=== PATIENT | male | born 1975 | race Caucasian/White ===

== ENCOUNTER 2021-04-29 09:54 | Emergency (ER) | payer BC ==
--- NOTE | 2021-04-29 10:27 | EDM.PDOC ---
ED HPI GENERAL MEDICAL PROBLEM - General Chief Complaint: Abdominal Pain Stated Complaint: ABD PAIN Time Seen by Provider: 04/29/21 10:23 Source of Information: Reports: Patient History Limitations: Reports: No Limitations - History of Present Illness INITIAL COMMENTS - FREE TEXT/NARRATIVE: on fri the patient developed pain in his rectum extending into the left abdoman. he has a past history of diverticulitis. He has not vomited. He feels like he has had some difference in his bms. He has not noted blood in the stool. Onset: Gradual, Other ( started fri. ) Duration: Hour(s): Location: Reports: Abdomen, Other (left side of the abdoman. ) Associated Symptoms: Denies: Other (pain on and off. ) Abdominal Pain Score (Numeric/FACES): 8 - Related Data Allergies Allergy/AdvReac Type Severity Reaction Status Date / Time Penicillins Allergy Hives Verified 04/29/21 10:08 Home Meds: Home Meds NK [No Known Home Meds] 04/29/21 [History] Past Medical History HEENT History: Reports: None Cardiovascular History: Reports: None Respiratory History: Reports: None Gastrointestinal History: Reports: Diverticulosis, Hemorrhoids Genitourinary History: Reports: None Musculoskeletal History: Reports: Fracture Neurological History: Reports: None Psychiatric History: Reports: None Endocrine/Metabolic History: Reports: None Hematologic History: Reports: None Immunologic History: Reports: None Oncologic (Cancer) History: Reports: None Dermatologic History: Reports: None - Infectious Disease History Infectious Disease History: Reports: Chicken Pox, Novel Coronavirus - Past Surgical History HEENT Surgical History: Reports: Tonsillectomy Musculoskeletal Surgical History: Reports: Shoulder Surgery Social & Family History - Recreational Drug Use Recreational Drug Use: No ED ROS GENERAL - Review of Systems Review Of Systems: See Below Constitutional: Reports: Decreased Appetite HEENT: Reports: No Symptoms Respiratory: Reports: No Symptoms Cardiovascular: Reports: No Symptoms Endocrine: Reports: No Symptoms GI/Abdominal: Reports: Abdominal Pain, Other ( change in bowel habits. pain in left abdoman. ) : Reports: No Symptoms Musculoskeletal: Reports: No Symptoms Skin: Reports: No Symptoms ED EXAM, GI/ABD - Physical Exam Exam: See Below Text/Narrative:: pt arrived with left sided abdomanal pain. He has noted a change in his bowel habits. He has sharp shooting pain at times. Exam Limited By: No Limitations General Appearance: Alert, Anxious, Moderate Distress Ears: Normal TMs Nose: Normal Inspection Throat/Mouth: Normal Inspection Head: Atraumatic Neck: Normal Inspection Respiratory/Chest: No Respiratory Distress Cardiovascular: Regular Rate, Rhythm GI/Abdominal Exam: Tender, Other (pt is tender in the left lower abdoman. He has slight guarding. ) (Male) Exam: Deferred Rectal (Males) Exam: Deferred Back Exam: Normal Inspection Extremities: Normal Inspection Neurological: Alert, Oriented, Normal Cognition Psychiatric: Anxious Course - Vital Signs Last Recorded V/S: Last Vital Signs Temp 36.4 C 04/29/21 10:03 Pulse 86 04/29/21 10:03 Resp 20 04/29/21 10:03 BP 131/90 04/29/21 10:03 Pulse Ox 99 04/29/21 10:03 - Orders/Labs/Meds Labs: Laboratory Tests 04/29/21 04/29/21 04/29/21 Range/Units 10:30 10:30 10:30 WBC 11.0 (4.5-11.0) K/uL RBC 4.59 (4.30-5.90) M/uL Hgb 14.3 (12.0-15.0) g/dL Hct 41.9 (40.0-54.0) % MCV 91 (80-98) fL MCH 31 (27-31) pg MCHC 34 (32-36) % Plt Count 190 (150-400) K/uL Neut % (Auto) 71.9 H (36-66) % Lymph % (Auto) 16.1 L (24-44) % Dougherty % (Auto) 8.7 H (2-6) % Eos % (Auto) 3.0 (2-4) % Baso % (Auto) 0.3 (0-1) % Sodium 139 L (140-148) mmol/L Potassium 4.4 (3.6-5.2) mmol/L Chloride 104 (100-108) mmol/L Carbon Dioxide 24 (21-32) mmol/L Anion Gap 15.4 H (5.0-14.0) mmol/L BUN 11 (7-18) mg/dL Creatinine 0.9 (0.8-1.3) mg/dL Est Cr Clr Drug Dosing 101.47 mL/min Estimated GFR (MDRD) > 60 (>60) Glucose 109 H (74-106) mg/dL Calcium 8.7 (8.5-10.1) mg/dL Total Bilirubin 0.5 (0.2-1.0) mg/dL AST 10 L (15-37) U/L ALT 18 (12-78) U/L Alkaline Phosphatase 74 (46-116) U/L C-Reactive Protein 1.36 H (0.0-0.3) mg/dL Total Protein 6.5 (6.4-8.2) g/dL Albumin 3.5 (3.4-5.0) g/dL Globulin 3.0 (2.3-3.5) g/dL Albumin/Globulin Ratio 1.2 (1.2-2.2) Urine Color (YELLOW) Urine Appearance (CLEAR) Urine pH (5.0-8.0) Ur Specific [place] (1.008-1.030) Urine Protein (NEGATIVE) mg/dL Urine Glucose (UA) (NEGATIVE) mg/dL Urine Ketones (NEGATIVE) mg/dL Urine Occult Blood (NEGATIVE) Urine Nitrite (NEGATIVE) Urine Bilirubin (NEGATIVE) Urine Urobilinogen (0.2-1.0) EU/dL Ur Leukocyte Esterase (NEGATIVE) Urine RBC (0-5) Urine WBC (0-5) Ur Epithelial Cells Amorphous Sediment Urine Bacteria Urine Mucus 04/29/21 Range/Units 11:16 WBC (4.5-11.0) K/uL RBC (4.30-5.90) M/uL Hgb (12.0-15.0) g/dL Hct (40.0-54.0) % MCV (80-98) fL MCH (27-31) pg MCHC (32-36) % Plt Count (150-400) K/uL Neut % (Auto) (36-66) % Lymph % (Auto) (24-44) % Dougherty % (Auto) (2-6) % Eos % (Auto) (2-4) % Baso % (Auto) (0-1) % Sodium (140-148) mmol/L Potassium (3.6-5.2) mmol/L Chloride (100-108) mmol/L Carbon Dioxide (21-32) mmol/L Anion Gap (5.0-14.0) mmol/L BUN (7-18) mg/dL Creatinine (0.8-1.3) mg/dL Est Cr Clr Drug Dosing mL/min Estimated GFR (MDRD) (>60) Glucose (74-106) mg/dL Calcium (8.5-10.1) mg/dL Total Bilirubin (0.2-1.0) mg/dL AST (15-37) U/L ALT (12-78) U/L Alkaline Phosphatase (46-116) U/L C-Reactive Protein (0.0-0.3) mg/dL Total Protein (6.4-8.2) g/dL Albumin (3.4-5.0) g/dL Globulin (2.3-3.5) g/dL Albumin/Globulin Ratio (1.2-2.2) Urine Color Yellow (YELLOW) Urine Appearance Clear (CLEAR) Urine pH 8.0 (5.0-8.0) Ur Specific [place] 1.020 (1.008-1.030) Urine Protein Negative (NEGATIVE) mg/dL Urine Glucose (UA) Negative (NEGATIVE) mg/dL Urine Ketones Negative (NEGATIVE) mg/dL Urine Occult Blood Negative (NEGATIVE) Urine Nitrite Negative (NEGATIVE) Urine Bilirubin Negative (NEGATIVE) Urine Urobilinogen 1.0 (0.2-1.0) EU/dL Ur Leukocyte Esterase Negative (NEGATIVE) Urine RBC Not seen (0-5) Urine WBC Not seen (0-5) Ur Epithelial Cells Not seen Amorphous Sediment Few Urine Bacteria Not seen Urine Mucus Not seen Meds: Medications Discontinued Medications Generic Name Dose Route Start Last Admin Trade Name Freq PRN Reason Stop Dose Admin Sodium Chloride 1,000 mls @ 999 mls/hr 04/29/21 11:15 04/29/21 11:27 Normal Saline IV 999 mls/hr ASDIRECTED ALBERT Administration Sodium Chloride 100 mls @ 3 mls/sec 04/29/21 11:30 04/29/21 11:49 Normal Saline IV 3 mls/sec ASDIRECTED ALBERT Administration Levofloxacin/Dextrose 750 mg/ 150 mls @ 100 mls/hr 04/29/21 13:20 04/29/21 13:22 Premix IV 04/29/21 14:49 100 mls/hr ONETIME ONE Administration Iopamidol 100 ml 04/29/21 11:26 04/29/21 11:49 Iopamidol 612 Mg/Ml 100 Ml Bottle IV 04/30/21 11:27 100 ml . DIRECTED PRN Administration RADIOLOGY EXAM Sodium Chloride 10 ml 04/29/21 11:26 04/29/21 11:49 Sodium Chloride 0.9% 10 Ml Sdv FLUSH 04/29/21 11:27 10 ml ONETIME ONE Administration - Re-Assessments/Exams Free Text/Narrative Re-Assessment/Exam: 04/29/21 13:08 pt arrived with left lower abdomanal pain. He had slight wbc elevation. He had a cat scan of the abdoman which showed diverticulitis without abcess. he was given levoquin 750 mg iv. Departure - Departure Time of Disposition: 13:10 Disposition: Home, Self-Care 01 Condition: Fair Clinical Impression: Diverticulitis - Discharge Information Instructions: Diverticulitis, [id number] Referrals: PCP,None [Primary Care Provider] - Forms: ED Department Discharge Care Plan Goals: rtc if pain shhould get alot worse, appt with Dr Mccain in 1 week, cipro 500mg bid for 10 days, flagyl 500mg tid for 10 days. Motrin or tylenol for pain.
[2021-04-29] MEDS ORDERED: Sodium Chloride 0.9% 1,000 ML IV SCH (11:15)
[2021-04-29] MEDS ORDERED: Iopamidol 612 MG/ML 100 ML Bottle IV PRN (11:26)
[2021-04-29] MEDS ORDERED: Sodium Chloride 0.9% 10 ML SDV FLUSH ONE (11:26)
[2021-04-29] MEDS ORDERED: Sodium Chloride 0.9% 100 ML IV SCH (11:30)
--- NOTE | 2021-04-29 12:51 | CRLCT ---
For Patients: As a result of the Century Cures Act, medical imaging exams and procedure reports are released immediately into your electronic medical record. You may view this report before your referring provider. If you have questions, please contact your health care provider. INDICATION: Left lower quadrant abdominal pain. History of diverticulitis. TECHNIQUE: CT scan of the abdomen and pelvis with 100 cc of Isovue-300 given intravenously. FINDINGS: The lung bases show trace dependent atelectasis. No focal abnormalities identified in the visualized portions of the liver, spleen, pancreas, adrenal glands, and kidneys. No hydronephrosis. No obstructing uroliths. Colonic diverticulosis. Focal bowel wall thickening and pericolonic edema involving the mid sigmoid colon. The remainder of the GI tract is incompletely distended but shows no gross abnormalities. Normal appendix. No retroperitoneal, pelvic sidewall, or mesenteric adenopathy. Mild atherosclerotic vascular calcifications. Degenerative changes of the spine. IMPRESSION: 1. Acute diverticulitis involving the mid sigmoid colon. Recommend direct visualization with colonoscopy once the patient`s symptoms have resolved to exclude the possibility of an underlying neoplastic process. Dictated by Pb Huff MD @ 04/29/2021 12:49:52 PM Please note that all CT scans at this facility use dose modulation, iterative reconstruction, and/or weight-based dosing when appropriate to reduce radiation dose to as low as reasonably achievable. Dictated by: Pb Huff MD @ 04/29/2021 12:50:00 (Electronically Signed)
[2021-04-29] MEDS ORDERED: Levofloxacin/Dextrose 5%-Water 750 MG in Premix Bag 1 BAG IV ONE ×2 (13:01→13:20)
== END 2021-04-29 15:21 | disposition home or self-care (01) ==
LOC: JP.ED 09:54
DX: K57.32 Diverticulitis of large intestine without perforation or abscess without bleeding (principal); Z88.0 Allergy status to penicillin; Z86.16 Personal history of COVID-19
CPT/HCPCS: 36415; 74177; 80053; 81001; 85025; 86140; 96365; 96366; 99284; J1956; J7030; Q9967

== ENCOUNTER 2021-05-02 19:19 | Emergency (ER) | payer BC ==
[2021-05-02] MEDS ORDERED: HYDROmorphone 1 MG/ML Syringe IVPUSH ONE ×2 (20:07→22:04)
[2021-05-02] MEDS ORDERED: Ondansetron 4 MG/2 ML SDV IVPUSH ONE (20:07)
--- NOTE | 2021-05-02 20:07 | EDM.PDOC ---
ED HPI GENERAL MEDICAL PROBLEM - General Chief Complaint: Abdominal Pain Stated Complaint: ABDOMINAL PAIN Time Seen by Provider: 05/02/21 19:59 Source of Information: Reports: Patient History Limitations: Reports: No Limitations - History of Present Illness INITIAL COMMENTS - FREE TEXT/NARRATIVE: Manuelito is a 45-year-old male presenting to the ED for evaluation of worsening left lower quadrant abdominal pain. Patient was seen on Friday by Dr. Lane and diagnosed with acute diverticulitis. He was started on oral Cipro 500 mg twice daily and oral Flagyl 500 mg 3 times daily for 10 days. He was instructed to take Tylenol or ibuprofen for pain control. He returns now with worsening abdominal pain spreading from the left lower quadrant now to periumbilical and right lower quadrant. He still having significant difficulty with stooling. He has been faithfully on his antibiotics per his report, however, he feels that he is getting much worse prompting him to come back in for evaluation. He is still having fever and chills, diminished appetite, and difficulty with sleeping due to abdominal pain. Left Lower Abdomen Pain Score (Numeric/FACES): 9 - Related Data Allergies Allergy/AdvReac Type Severity Reaction Status Date / Time Penicillins Allergy Hives Verified 04/29/21 10:08 Home Meds: Home Meds Ciprofloxacin [Ciprofloxacin HCl] 500 mg PO BID 05/02/21 [History] metroNIDAZOLE [Metronidazole] 500 mg PO TID 05/02/21 [History] Past Medical History HEENT History: Reports: None Cardiovascular History: Reports: None Respiratory History: Reports: None Gastrointestinal History: Reports: Diverticulosis, Hemorrhoids Genitourinary History: Reports: None Musculoskeletal History: Reports: Fracture Neurological History: Reports: None Psychiatric History: Reports: None Endocrine/Metabolic History: Reports: None Hematologic History: Reports: None Immunologic History: Reports: None Oncologic (Cancer) History: Reports: None Dermatologic History: Reports: None - Infectious Disease History Infectious Disease History: Reports: Chicken Pox, Novel Coronavirus - Past Surgical History HEENT Surgical History: Reports: Tonsillectomy Musculoskeletal Surgical History: Reports: Shoulder Surgery Social & Family History - Tobacco Use Tobacco Use Status *Q: Heavy Tobacco User Years of Tobacco use: 30 Packs/Tins Daily: 1 - Alcohol Use Number of Drinks Per Day: 3 - Recreational Drug Use Recreational Drug Use: No ED ROS GENERAL - Review of Systems Review Of Systems: See Below Constitutional: Reports: Chills HEENT: Reports: No Symptoms Respiratory: Reports: No Symptoms Cardiovascular: Reports: No Symptoms Endocrine: Reports: No Symptoms GI/Abdominal: Reports: Abdominal Pain (Worsening left lower quadrant abdominal pain now spreading to the periumbilical area and right lower quadrant. Symptoms started 4 days ago), Decreased Appetite, Nausea, Other (Patient having small- volume mucousy stools) : Reports: No Symptoms Musculoskeletal: Reports: No Symptoms Skin: Reports: No Symptoms Neurological: Reports: No Symptoms Psychiatric: Reports: No Symptoms Hematologic/Lymphatic: Reports: No Symptoms Immunologic: Reports: No Symptoms ED EXAM, GI/ABD - Physical Exam Exam: See Below Exam Limited By: No Limitations General Appearance: Alert, Anxious, Moderate Distress Eyes: Bilateral: EOMI Throat/Mouth: Normal Inspection, Normal Lips, Normal Oropharynx, Normal Voice, No Airway Compromise Head: Atraumatic, Normocephalic Neck: Normal Inspection, Supple, Non-Tender, Full Range of Motion. No: Lymphadenopathy (R), Lymphadenopathy (L) Respiratory/Chest: No Respiratory Distress, Lungs Clear, Normal Breath Sounds Cardiovascular: Normal Peripheral Pulses, Regular Rate, Rhythm, No Murmur GI/Abdominal Exam: Soft, Guarding (Left lower quadrant), Rebound, Tender (Tenderness in the bilateral low abdomen with the left markedly greater than right.), Abnormal Bowel Sounds (Increased bowel sounds) Back Exam: Normal Inspection Extremities: Normal Inspection Neurological: Alert, Oriented, Normal Cognition, No Motor/Sensory Deficits Psychiatric: Normal Affect Skin Exam: Warm, Dry, Intact, Normal Color Lymphatic: No Adenopathy Course - Vital Signs Last Recorded V/S: Last Vital Signs Temp 36.6 C 05/02/21 19:48 Pulse 86 05/02/21 21:52 Resp 18 05/02/21 21:52 BP 126/83 05/02/21 21:52 Pulse Ox 99 05/02/21 21:52 - Orders/Labs/Meds Orders: Active Orders 24 hr Category Date Time Status Iopamidol [Isovue-300 (61%)] Med 05/02/21 20:30 Active 113 ml IV . DIRECTED Sodium Chloride 0.9% [Normal Saline] 80 ml Med 05/02/21 20:30 Active IV ASDIRECTED Sodium Chloride 0.9% [Saline Flush] Med 05/02/21 20:06 Active 10 ml FLUSH ASDIRECTED PRN Saline Lock Insert [OM.PC] Routine Oth 05/02/21 20:06 Ordered Medication Orders Sodium Chloride (Normal Saline) 80 mls @ 3 mls/sec IV ASDIRECTED ALBERT Last Admin: 05/02/21 20:32 Dose: 3 mls/sec Documented by: RIKKI Iopamidol (Iopamidol 612 Mg/Ml 150 Ml Bottle) 113 ml IV . DIRECTED ALBERT Last Admin: 05/02/21 20:32 Dose: 113 ml Documented by: RIKKI Sodium Chloride (Sodium Chloride 0.9% 10 Ml Syringe) 10 ml FLUSH ASDIRECTED PRN PRN Reason: Keep Vein Open Last Admin: 05/02/21 20:32 Dose: 10 ml Documented by: Admin: 05/02/21 20:20 Dose: 10 ml Documented by: SARWAT Labs: Laboratory Tests 05/02/21 05/02/21 05/02/21 Range/Units 20:19 20:19 20:19 WBC 12.6 H (4.5-11.0) K/uL RBC 4.17 L (4.30-5.90) M/uL Hgb 12.9 (12.0-15.0) g/dL Hct 37.8 L (40.0-54.0) % MCV 91 (80-98) fL MCH 31 (27-31) pg MCHC 34 (32-36) % Plt Count 202 (150-400) K/uL Neut % (Auto) 75.6 H (36-66) % Lymph % (Auto) 13.3 L (24-44) % Robertson % (Auto) 9.7 H (2-6) % Eos % (Auto) 1.2 L (2-4) % Baso % (Auto) 0.2 (0-1) % Sodium 136 L (140-148) mmol/L Potassium 3.8 (3.6-5.2) mmol/L Chloride 100 (100-108) mmol/L Carbon Dioxide 26 (21-32) mmol/L Anion Gap 13.8 (5.0-14.0) mmol/L BUN 10 (7-18) mg/dL Creatinine 0.9 (0.8-1.3) mg/dL Est Cr Clr Drug Dosing 101.47 mL/min Estimated GFR (MDRD) > 60 (>60) Glucose 94 (74-106) mg/dL Lactic Acid 0.6 (0.4-2.0) mmol/L Calcium 8.6 (8.5-10.1) mg/dL Total Bilirubin 0.5 (0.2-1.0) mg/dL AST 11 L (15-37) U/L ALT 16 (12-78) U/L Alkaline Phosphatase 77 (46-116) U/L Total Protein 6.4 (6.4-8.2) g/dL Albumin 3.3 L (3.4-5.0) g/dL Globulin 3.1 (2.3-3.5) g/dL Albumin/Globulin Ratio 1.1 L (1.2-2.2) SARS CoV-2 RNA Rapid RUDDY 05/02/21 Range/Units 20:27 WBC (4.5-11.0) K/uL RBC (4.30-5.90) M/uL Hgb (12.0-15.0) g/dL Hct (40.0-54.0) % MCV (80-98) fL MCH (27-31) pg MCHC (32-36) % Plt Count (150-400) K/uL Neut % (Auto) (36-66) % Lymph % (Auto) (24-44) % Robertson % (Auto) (2-6) % Eos % (Auto) (2-4) % Baso % (Auto) (0-1) % Sodium (140-148) mmol/L Potassium (3.6-5.2) mmol/L Chloride (100-108) mmol/L Carbon Dioxide (21-32) mmol/L Anion Gap (5.0-14.0) mmol/L BUN (7-18) mg/dL Creatinine (0.8-1.3) mg/dL Est Cr Clr Drug Dosing mL/min Estimated GFR (MDRD) (>60) Glucose (74-106) mg/dL Lactic Acid (0.4-2.0) mmol/L Calcium (8.5-10.1) mg/dL Total Bilirubin (0.2-1.0) mg/dL AST (15-37) U/L ALT (12-78) U/L Alkaline Phosphatase (46-116) U/L Total Protein (6.4-8.2) g/dL Albumin (3.4-5.0) g/dL Globulin (2.3-3.5) g/dL Albumin/Globulin Ratio (1.2-2.2) SARS CoV-2 RNA Rapid RUDDY Negative Meds: Medications Generic Name Dose Route Start Last Admin Trade Name Katalina PRN Reason Stop Dose Admin Sodium Chloride 80 mls @ 3 mls/sec 05/02/21 20:30 05/02/21 20:32 Normal Saline IV 3 mls/sec ASDIRECTED ALBERT Administration Iopamidol 113 ml 05/02/21 20:30 05/02/21 20:32 Iopamidol 612 Mg/Ml 150 Ml Bottle IV 113 ml . DIRECTED ABLERT Administration Sodium Chloride 10 ml 05/02/21 20:06 05/02/21 20:32 Sodium Chloride 0.9% 10 Ml Syringe FLUSH 10 ml ASDIRECTED PRN Administration Keep Vein Open Discontinued Medications Generic Name Dose Route Start Last Admin Trade Name Katalina PRN Reason Stop Dose Admin Hydromorphone HCl 1 mg 05/02/21 20:07 05/02/21 20:20 Hydromorphone 1 Mg/Ml Syringe IVPUSH 05/02/21 20:08 1 mg ONETIME ONE Administration Hydromorphone HCl 1 mg 05/02/21 22:04 05/02/21 22:19 Hydromorphone 1 Mg/Ml Syringe IVPUSH 05/02/21 22:05 1 mg ONETIME ONE Administration Nicotine 21 mg 05/02/21 21:56 05/02/21 22:20 Nicotine 21 Mg/24 Hr Patch TRDERM 05/02/21 21:57 21 mg ONETIME ONE Administration Ondansetron HCl 4 mg 05/02/21 20:07 05/02/21 20:19 Ondansetron 4 Mg/2 Ml Sdv IVPUSH 05/02/21 20:08 4 mg ONETIME ONE Administration - Radiology Interpretation Free Text/Narrative:: I reviewed the CT of the abdomen and pelvis with contrast and the report. This was compared to the previous CT done on Friday. There is worsening of the pericolonic stranding with new formation of a by lobed abscess coming off the anterior wall of the sigmoid colon measuring 2.2 cm causing para serosal edema and stranding. - Re-Assessments/Exams Free Text/Narrative Re-Assessment/Exam: 05/02/21 22:15 I reviewed the patient's labs showing a leukocyte count of 12.6 with elevation of neutrophil count. Hemoglobin is 12.9 with a hematocrit of 37.8 and a platelet count of 202,000. The basic metabolic profile shows a sodium with 136, potassium 3.8, chloride 100, bicarbonate of 26, BUN of 10 with a creatinine of 0.9 and a glucose of 94. The patient is COVID-19 negative. The lactic acid is 0.6. The CT scan shows a newly developing bilobed abscess arising from the anterior wall of the sigmoid colon causing para serosal stranding. There is also extension of the pericolonic stranding down into the pelvis now. Because the patient has been on oral antibiotics, this is essentially a failure of outpatient management. There are no beds available at [facility] at this time so we will arrange for him to transfer to [facility] which is his first alternative choice. I discussed the case with Dr. Vasquez surgeon at [facility] who accepts the patient in transfer for admission. Dr. Nichols will take over the case in the morning. They will plan on likely interventional radiology doing percutaneous drainage of the abscess. A NicoDerm patch was placed on the patient to treat his nicotine withdrawal as he is not to go outside and smoke. Patient has been receiving Dilaudid 1 mg every hour or so for pain control. Departure - Departure Time of Disposition: 22:21 Disposition: DC/Tfer to [facility] 02 Clinical Impression: Diverticulitis of large intestine with abscess Qualifiers: Diverticulitis bleeding: without bleeding Qualified Code(s): K57.20 - Diverticulitis of large intestine with perforation and abscess without bleeding - Discharge Information Referrals: PCP,None [Primary Care Provider] - Forms: ED Department Discharge Sepsis Event Note (ED) - Focused Exam Vital Signs: Vital Signs Temp Pulse Resp BP Pulse Ox 05/02/21 21:52 86 18 126/83 99 05/02/21 19:48 36.6 C 92 16 126/81 100 - Problem List & Annotations (1) Diverticulitis of large intestine with abscess SNOMED Code(s): 4396381, [id number] Code(s): K57.20 - DVTRCLI OF LG INT W PERFORATION AND ABSCESS W/O BLEEDING Status: Acute Priority: High Current Visit: Yes Qualifiers: Diverticulitis bleeding: without bleeding Qualified Code(s): K57.20 - Dive rticulitis of large intestine with perforation and abscess without bleeding - Problem List Review Problem List Initiated/Reviewed/Updated: Yes - My Orders Last 24 Hours: My Active Orders 05/02/21 20:06 Sodium Chloride 0.9% [Saline Flush] 10 ml FLUSH ASDIRECTED PRN Saline Lock Insert [OM.PC] Routine 05/02/21 20:30 Iopamidol [Isovue-300 (61%)] 113 ml IV . DIRECTED Sodium Chloride 0.9% [Normal Saline] 80 ml IV ASDIRECTED - Assessment/Plan Last 24 Hours: My Active Orders 05/02/21 20:06 Sodium Chloride 0.9% [Saline Flush] 10 ml FLUSH ASDIRECTED PRN Saline Lock Insert [OM.PC] Routine 05/02/21 20:30 Iopamidol [Isovue-300 (61%)] 113 ml IV . DIRECTED Sodium Chloride 0.9% [Normal Saline] 80 ml IV ASDIRECTED
[2021-05-02] MEDS: Sodium Chloride 0.9% 10 ML Syringe FLUSH PRN ×2 (20:20→20:32)
[2021-05-02] MEDS ORDERED: Sodium Chloride 0.9% 80 ML IV SCH (20:30)
[2021-05-02] MEDS ORDERED: Iopamidol 612 MG/ML 150 ML Bottle IV SCH (20:30)
--- NOTE | 2021-05-02 21:02 | CRLCT ---
For Patients: As a result of the Century Cures Act, medical imaging exams and procedure reports are released immediately into your electronic medical record. You may view this report before your referring provider. If you have questions, please contact your health care provider. Indication: Follow-up diverticulitis. Left lower quadrant pain. Technique: A CT volumetric acquisition was performed of the abdomen and pelvis during bolus infusion 100 cc Isovue-300. Comparison: CT abdomen pelvis dated 04/29/2021 Findings: The lung bases are clear. The liver has uniform enhancement with no evidence of abscess formation. The spleen and pancreas appear normal. The gallbladder and bile ducts are normal in size. There is normal uniform enhancement of the kidneys. Mild atherosclerotic changes are evident within the lower abdominal aorta. The small intestine appears normal. There is persistent mural thickening within the mid and distal sigmoid colon. There is inflammatory stranding within the periserosal fat. There is a developing bilobed intramural abscess involving the anterior wall of the mid sigmoid colon seen on axial images 102-112. The largest fluid pocket measures 2.2 cm in size and there is increased vascular enhancement about the margins of the fluid. There is no evidence of free intraperitoneal air. The prostate gland and urinary bladder appear intact. Impression: Developing anterior intramural abscess within the inflamed sigmoid colon. Dictated by Nash Bautista MD @ 05/02/2021 9:01:49 PM Please note that all CT scans at this facility use dose modulation, iterative reconstruction, and/or weight-based dosing when appropriate to reduce radiation dose to as low as reasonably achievable. Dictated by: Nash Bautista MD @ 05/02/2021 21:01:55 (Electronically Signed)
[2021-05-02] MEDS ORDERED: Nicotine 21 MG/24 Hr Patch TRDERM ONE (21:56)
[2021-05-02] MEDS ORDERED: Ertapenem 1 GM in Sodium Chloride 0.9% 100 ML IV ONE (22:23)
== END 2021-05-02 23:48 ==
LOC: JP.ED 19:19
DX: K57.20 Diverticulitis of large intestine with perforation and abscess without bleeding (principal); Z72.0 Tobacco use
CPT/HCPCS: 36415; 74177; 80053; 83605; 85025; 87635; 96365; 96375; 96376; 99285; A9270; J1170; J1335; J2405; Q9967; U0002